=== PATIENT | female | born 1940 | race Caucasian/White ===

== ENCOUNTER → 2017-03-19 14:30 | Outpatient (CLI) | payer MEDICARE, OTHER | END | disposition home or self-care (01) | LOC: D.MAMMO 08:15 | DX: Z12.31 Encounter for screening mammogram for malignant neoplasm of breast (principal) ==

== ENCOUNTER 2017-10-21 12:10 | Emergency (ER) | payer MEDICARE, OTHER ==
[2017-10-21 12:36] LABS: BASOPHILS 0.6 % (0-2); EOSINOPHILS 4.6 % (0-7); HEMATOCRIT 35.3 % (36.0-48.0); HEMOGLOBIN 11.8 g/dL (12-16); IMMATURE GRANULOCYTES 0.1 % (0-5); MCH 30.3 pg (26.0-34.0); MCHC 33.4 g/dL (31.0-37.0); MCV 90.5 fL (80.0-100.0); MEAN PLATELET VOLUME 9.7 fL (7.4-10.4); MONOCYTES 8.5 % (2-11); NEUTROPHILS 60.2 % (40-80); PLATELET COUNT 386 10x3/uL (130-400); RDW 14.4 % (11.5-14.5); WBC 8.7 10x3/uL (4.8-10.8)
[2017-10-21 12:53] LABS: ALBUMIN 3.5 g/dL (3.4-5.0); ALKALINE PHOSPHATASE 72 U/L (46-116); ALT (SGPT) 30 U/L (10-68); BILIRUBIN - TOTAL 0.36 mg/dL (0.2-1.3); CALC OSMOLALITY 270 mosm/kg (275-300); CALCIUM 8.7 mg/dL (8.5-10.1); CHLORIDE - SERUM 101 mmol/L (98-107); CREATININE - SERUM 0.8 mg/dL (0.6-1.3); GLUCOSE 93 mg/dL (74-106); PROTEIN - SERUM 7.4 g/dL (6.4-8.2); SODIUM 136 mmol/L (136-145); UREA NITROGEN 11 mg/dL (7-18); eGFR NON AFRICAN AMERICAN 74 mL/min (90-120)
[2017-10-21 13:04] LABS: CHOL - HDL RATIO 3.7 ratio (2.3-4.1); CHOLESTEROL, TOTAL 253 mg/dL (0-200); CKMB 1.8 U/L (0.0-3.6); CREATINE KINASE 90 UL (21-215); HDL CHOLESTEROL 69 mg/dL (32-96); LDL CHOLESTEROL 150 mg/dL (0-100); LDL-HDL RATIO 2.2 ratio (1.5-3.5); TRIGLYCERIDE 173 mg/dL (30-200)
[2017-10-21 13:05] LABS: TROPONIN-I < 0.017 ng/mL (0.000-0.060)
== END 2017-10-21 17:20 | disposition home or self-care (01) ==
LOC: D.ER 12:10
PROVIDERS: Emergency Medicine
DX: R07.9 Chest pain, unspecified (principal)